=== PATIENT | male | born 1995 | race Caucasian/White ===

== ENCOUNTER 2020-08-28 10:07 | Emergency (ER) | payer OTHER ==
[~2020-08-28] VITALS: Ht 182.9 cm; Wt 112.5 kg
== END 2020-08-28 13:30 | disposition home or self-care (01) ==
LOC: ED 10:07 → EDBD 10:08 → ED 10:08
DX: S32.019A Unspecified fracture of first lumbar vertebra, initial encounter for closed fracture (principal); S32.029A Unspecified fracture of second lumbar vertebra, initial encounter for closed fracture; S62.615A Displaced fracture of proximal phalanx of left ring finger, initial encounter for closed fracture; W17.89XA Other fall from one level to another, initial encounter; Z88.0 Allergy status to penicillin
CPT/HCPCS: 26725; 71045; 72131; 73130; 74177; 80053; 85025; 99284-25; J1885; Q9967